=== PATIENT | female | born 1955 | race Caucasian/White ===

== ENCOUNTER 2016-07-10 08:47 | Inpatient (IN) | payer OTHER ==
[2016-07-05 20:05] LABS: BASOPHILS 0.8 %; BASOPHILS ABSOLUTE 0.07 10/3/uL (0.0-0.16); EOSINOPHILS 3.3 %; EOSINOPHILS ABSOLUTE 0.28 10/3/uL (0.0-0.53); HEMATOCRIT 40.4 % (36.0-48.0); HEMOGLOBIN 14.3 g/dL (12.0-16.0); IMMATURE GRANULOCYTES 0.2 %; IMMATURE GRANULOCYTES ABSOLUTE 0.02 10/3/uL (0.0-0.11); LYMPHOCYTES 31.2 %; LYMPHOCYTES ABSOLUTE 2.67 10/3/uL (0.67-4.30); MEAN PLATELET VOLUME 9.2 fL (9.2-13.0); MONOCYTES 7.8 %; MONOCYTES ABSOLUTE 0.67 10/3/uL (0.21-1.20); NEUTROPHILS 56.7 %; NEUTROPHILS ABSOLUTE 4.84 10/3/uL (2.02-8.40); PLATELET COUNT 298 10/3/uL (150-400); RBC DISTRIBUTION WIDTH 12.6 % (12.0-16.0); WHITE BLOOD CELLS 8.6 10/3/uL (4.5-10.5)
[2016-07-05 20:06] LABS: MANUAL DIFF NO %; MEAN CORPUS HGB CONC 35.4 g/dL (32.0-36.0); MEAN CORPUSCULAR VOLUME 96.2 fL (80-100)
[2016-07-05 20:22] LABS: A/G RATIO 1.3 (0.7-1.9); ALKALINE PHOSPHATASE 74 U/L (45-117); BUN (BLOOD UREA NITROGEN) 6 MG/DL (6-23); CALCIUM, SERUM 9.2 MG/DL (8.5-10.4); CHLORIDE, SERUM 107 MMOL/L (96-112); CO2 (CARBON DIOXIDE) 22 MMOL/L (24-34); CREATININE 0.61 MG/DL (0.55-1.02); GFR AFRICAN AMERICAN 116 ML/MIN (>=60); GFR NON AFRICAN AMERICAN 100 ML/MIN (>=60); GLOBULIN 3.1 G/DL (2.5-4.1); GLUCOSE, SERUM 96 MG/DL (60-99); POTASSIUM, SERUM 4.5 MMOL/L (3.5-5.3); PREALBUMIN 25.4 MG/DL (17.0-43.0); SGOT(AST) 26 U/L (5-40); SGPT(ALT) 37 U/L (5-65); SODIUM, SERUM 142 MMOL/L (135-148); TOTAL BILIRUBIN 0.3 MG/DL (0-1.2); TOTAL PROTEIN 7.1 G/DL (6.0-8.5)
--- NOTE | ~2016-07-10 | OP ---
Record Of Operation [facility] [address] [place]. [address] NAME: MIRI UBTCHER : 59 STATUS : ADM Lauryn PAT#: [id number] AGE: 60 ADM/REG DATE : 07/10/16 MR#: [id number] REPORT SERV DATE: 07/10/16 DICTATED BY: KATELYN PAREDES JR. DATE: 07/10/16 REPORT STATUS : Draft TRANSCRIBED BY: MODL DATE: 07/10/16 DATE OF PROCEDURE: 07/10/2016 SURGEON: Katelyn Paredes M.D. [employer]JECT INTER[employer]: [employer]helle Harmon. PROCEDURE: Laparoscopic repair of recurrent ventral hernia. PREOPERATIVE DIAGNOSIS: Recurrent ventral hernia. POSTOPERATIVE DIAGNOSIS: Recurrent ventral hernia. ANESTHESIA: General. INDICATIONS: The patient has had complex hernia repairs with infected mesh with removal, use of biologic mesh. She has developed symptomatic recurrence on the right flank right upper quadrant area which appears to be adjacent to previous repair. Laparoscopic examination and appropriate procedure was indicated. FINDINGS: On laparoscopic examination of the abdomen, there were adhesions from previous surgery, mostly in the midline and upper quadrants. Examination did show intact repair of the lower midline with apparent complete incorporation of the previous biologic mesh. There was evidence of a hernia defect in the right side, superior to the previous repair and inferior to the right upper quadrant. Once the adhesion was resected, this was repaired with underlay hybrid Zenapro mesh in view of the patient's history of previous mesh infection. No significant findings were encountered. DESCRIPTION OF PROCEDURE: With adequate general anesthesia, the patient was placed in the supine position. The abdomen was prepped and sterilely. 0.5% Marcaine was used for local infiltration of all trocar sites. A 0.5% Marcaine was used. There are left upper quadrant incisions. The incision was deepened down through the subcutaneous tissues. The fascia and peritoneum were opened. The peritoneal cavity was entered. A balloon-tipped trocar was introduced. In the absence of low CO2, the laparoscope was introduced as noted. Two 5 mm trocars placed in the right and left lower quadrants and ultimately a 10 in the right upper quadrant. Adhesions were taken down securing bleeders with the LigaSure device. With this accomplished, then the 10 cm round Zenapro hybrid mesh was utilized. Four-quadrant sutures of 0 Novafil were placed. The mesh introduced in the peritoneal cavity and the suture passer utilized to secure the sutures around the hernia defect, and then AbsorbaTack was utilized to secure the mesh to the overlying perineum. Sutures were tied and this allowed closure of the hernia. Then, the trocars were removed. The left upper quadrant incision was closed, the fascia repaired with 0 PDS as was the right upper quadrant incision. Wounds were all closed with dermal Monocryl. Sterile dressings were applied. The patient left the operating room in satisfactory condition. ESTIMATED BLOOD LOSS: Was 30 mL. Record Of Operation [address] [address] NAME: MIRI BUTCHER : 59 STATUS : ADM Lauryn PAT#: [id number] AGE: 60 ADM/REG DATE : 07/10/16 MR#: [id number] REPORT SERV DATE: 07/10/16 DICTATED BY: KATELYN PAREDES JR. DATE: 07/10/16 REPORT STATUS : Draft TRANSCRIBED BY: ISAURO DATE: 07/10/16 MIKA/ISAURO Katelyn Paredes Jr., M.D. / [id number] CC: Belen Barriga Jr., M.D.
[~2016-07-10 08:47] MED LIST: ACET500CAP PO; ADVIL PO; ASAB PO; BACDS PO; CENTRUM PO; CIP5 PO; CYMBALTA60 PO; FLEX PO; HALF81 PO; HRT BASE TOP; HRT BASE XX; LORT7 PO; MACROBID PO; METHOC750B PO; MONODOX100 MG PO; MVI PO; NOR25 PO; NORCO1 TA2 PO; NORCO1 TAB PO; ORAZINC110 MG PO; PCET PO; PR25 PO; PRILO PO; RIFADIN 300 MG300 MG PO; SENOKOTS PO; SENTAB PO; TUSSIONEX1 ML PO; VANCO500 IV; VIT B-SIX 50 MG50 MG OR; VITC500 PO; X5 PO; XANAX1 MG PO; ZOCOR40 PO; ZYVOXPO PO; [UNRECOGNIZED DRUG - OTHER] PO
[2016-07-11 06:14] LABS: BASOPHILS 0.4 %; BASOPHILS ABSOLUTE 0.06 10/3/uL (0.0-0.16); EOSINOPHILS 1.3 %; HEMOGLOBIN 12.7 g/dL (12.0-16.0); IMMATURE GRANULOCYTES 0.3 %; IMMATURE GRANULOCYTES ABSOLUTE 0.04 10/3/uL (0.0-0.11); LYMPHOCYTES 11.7 %; LYMPHOCYTES ABSOLUTE 1.82 10/3/uL (0.67-4.30); MEAN CORPUS HGB CONC 34.3 g/dL (32.0-36.0); MEAN CORPUSCULAR HEMOGLOB 33.9 pg (26.0-34.0); MEAN CORPUSCULAR VOLUME 98.7 fL (80-100); MEAN PLATELET VOLUME 8.9 fL (9.2-13.0); MONOCYTES 8.8 %; MONOCYTES ABSOLUTE 1.37 10/3/uL (0.21-1.20); NEUTROPHILS 77.5 %; NEUTROPHILS ABSOLUTE 12.08 10/3/uL (2.02-8.40); RBC DISTRIBUTION WIDTH 12.5 % (12.0-16.0); RED CELL COUNT 3.75 10/6/uL (4.0-5.6)
[2016-07-11 06:15] LABS: MANUAL DIFF NO %; PLATELET COUNT 206 10/3/uL (150-400); WHITE BLOOD CELLS 15.6 10/3/uL (4.5-10.5)
[2016-07-11 06:26] LABS: ALBUMIN 3.3 G/DL (3.5-5.0); ALKALINE PHOSPHATASE 65 U/L (45-117); BUN (BLOOD UREA NITROGEN) 5 MG/DL (6-23); CALCIUM, SERUM 8.3 MG/DL (8.5-10.4); CHLORIDE, SERUM 105 MMOL/L (96-112); CO2 (CARBON DIOXIDE) 23 MMOL/L (24-34); CREATININE 0.56 MG/DL (0.55-1.02); GFR AFRICAN AMERICAN 119 ML/MIN (>=60); GFR NON AFRICAN AMERICAN 103 ML/MIN (>=60); GLOBULIN 3.2 G/DL (2.5-4.1); GLUCOSE, SERUM 112 MG/DL (60-99); POTASSIUM, SERUM 3.9 MMOL/L (3.5-5.3); SGOT(AST) 23 U/L (5-40); SGPT(ALT) 33 U/L (5-65); SODIUM, SERUM 138 MMOL/L (135-148); TOTAL BILIRUBIN 0.4 MG/DL (0-1.2); TOTAL PROTEIN 6.5 G/DL (6.0-8.5)
[2016-07-12 06:27] LABS: BUN (BLOOD UREA NITROGEN) 6 MG/DL (6-23); CHLORIDE, SERUM 102 MMOL/L (96-112); CREATININE 0.62 MG/DL (0.55-1.02); GFR AFRICAN AMERICAN 115 ML/MIN (>=60); GFR NON AFRICAN AMERICAN 99 ML/MIN (>=60); GLUCOSE, SERUM 104 MG/DL (60-99); POTASSIUM, SERUM 3.6 MMOL/L (3.5-5.3); SODIUM, SERUM 138 MMOL/L (135-148)
[2016-07-12 06:28] LABS: BASOPHILS 0.2 %; BASOPHILS ABSOLUTE 0.02 10/3/uL (0.0-0.16); CALCIUM, SERUM 9.4 MG/DL (8.5-10.4); CO2 (CARBON DIOXIDE) 31 MMOL/L (24-34); EOSINOPHILS ABSOLUTE 0.35 10/3/uL (0.0-0.53); HEMATOCRIT 38.9 % (36.0-48.0); HEMOGLOBIN 13.6 g/dL (12.0-16.0); IMMATURE GRANULOCYTES 0.1 %; IMMATURE GRANULOCYTES ABSOLUTE 0.01 10/3/uL (0.0-0.11); LYMPHOCYTES ABSOLUTE 1.84 10/3/uL (0.67-4.30); MANUAL DIFF NO %; MEAN CORPUSCULAR HEMOGLOB 33.9 pg (26.0-34.0); MONOCYTES 13.2 %; MONOCYTES ABSOLUTE 1.16 10/3/uL (0.21-1.20); NEUTROPHILS 61.5 %; NEUTROPHILS ABSOLUTE 5.39 10/3/uL (2.02-8.40); PLATELET COUNT 227 10/3/uL (150-400); RBC DISTRIBUTION WIDTH 12.1 % (12.0-16.0); RED CELL COUNT 4.01 10/6/uL (4.0-5.6); WHITE BLOOD CELLS 8.8 10/3/uL (4.5-10.5)
[2016-07-12] MEDS ORDERED: PCET PO (13:51)
== END 2016-07-12 14:39 | disposition home or self-care (01) | DRG 355 ==
LOC: SDC 08:47 → SDC/OF 15:40 → 5SO 16:27
PROVIDERS: Specialist
PROC: 0WPF4JZ Removal of Synthetic Substitute from Abdominal Wall, Percutaneous Endoscopic Approach (ICD-10-PCS; 2016-07-10)
PROC: 0WUF4JZ Supplement Abdominal Wall with Synthetic Substitute, Percutaneous Endoscopic Approach (ICD-10-PCS; principal; 2016-07-10 10:15)
DX: K43.9 Ventral hernia without obstruction or gangrene (principal); I10 Essential (primary) hypertension; Z85.3 Personal history of malignant neoplasm of breast; F41.9 Anxiety disorder, unspecified; Z80.0 Family history of malignant neoplasm of digestive organs; Z80.41 Family history of malignant neoplasm of ovary; Z80.3 Family history of malignant neoplasm of breast; F17.210 Nicotine dependence, cigarettes, uncomplicated; Z79.899 Other long term (current) drug therapy
CPT/HCPCS: 36415; 71020-PO; 80048; 80053; 82962; 83036; 83735; 84134; 85025; 87641; 93005; A9270-GY; C1713; C1781; J0690; J1170; J2250; J2270; J2370; J2405; J2710; J3010; J3370